=== PATIENT | female | born 1955 ===

== ENCOUNTER 2024-12-03 06:00 | Day surgery (SDC) | payer OTHER ==
[2024-11-26 10:06] LABS: URINE APPEARANCE Clear; URINE BILIRRUBIN Negative (NEGATIVE); URINE BLOOD Negative; URINE COLOR Yellow; URINE KETONE Negative (NEGATIVE); URINE LEUKOCYTE Negative; URINE NITRATE Negative; URINE PROTEIN Negative (NEGATIVE); URINE UROBILINOGEN 0.2 E.U./dl
[2024-11-26 10:07] LABS: BASO % 0.7 % (0.1-1.2); EOS # 0.15 (0.04-0.54); EOS % 1.5 % (0.7-7.0); LYMPH # 1.85 (1.18-3.74); LYMPH % 19.1 % (19.3-53.1); MEAN PLATELET VOLUME 9.10 fl (9.4-12.4); MONO # 0.64 (0.24-0.82); MONO % 6.6 % (4.7-12.5); NEUT # 6.96 (1.56-6.13); NEUT % 71.8 % (34.0-71.1); RED CELL DISTRIBUTION WIDTH 13.2 % (11.6-14.4)
[2024-11-26 10:10] LABS: URINE BACTERIA 37.1 uL (0.0-1933); URINE EPITHELIAL CELLS 2.2 uL (0.0-38.8)
[2024-11-26 10:14] LABS: URINE CAST 0.00 uL (0.0-1.40); URINE GLUCOSE >=1000 MG/DL (NEGATIVE); URINE RBC 1.9 uL (0.0-20.8); URINE WBC 1.5 uL (0.0-23.2)
[2024-11-26 10:32] LABS: INR 1.0
[2024-11-26 10:37] VITALS: BP 134/75
[2024-11-26 10:47] LABS: BUN CREA RATIO 21.0 (7.0-25.0); CREATININE SERUM 1.05 mg/dL (0.55-1.02); GFR 51.81; GLUCOSE FASTING 140.0 mg/dL (65-100); OSMOLALITY SERUM 289.0 MOSM/KG (275-295)
[~2024-12-03] VITALS: Ht 167.6 cm; Wt 84.4 kg
[~2024-12-03 06:00] MED LIST: ATACAND HCT 321 EAC1 PO; BRILINTA60 MG PO; GLIMEPIRIDE4 MG; HORIZANT300 MG PO; NORVASC5 MG PO; REPATHA SU140 MG/1 M SUBCUTANEO; ROSUVASTATIN CAL5 MG PO; SYNTHROID75 MCG PO; XIGDUO XR 5 MG1 EACH PO; ZETIA10 MG PO
[2024-12-03] MEDS ORDERED: ENOXAPARIN SODIUM 40 MG/0.4 ML SYRINGE SUBCUTANEO ONE (07:31)
[2024-12-03] MEDS ORDERED: METRONIDAZOLE/SODIUM CHLORIDE 500 MG/100 ML PIGGYBACK IV ONE (07:32)
[2024-12-03] MEDS ORDERED: CEFTRIAXONE SODIUM 2,000 MG VIAL ONE (07:32)
[2024-12-03] MEDS ORDERED: PERCOCET 5-3251 EACH PO (11:18)
[2024-12-03] MEDS ORDERED: POLY119PG PO (11:19)
[2024-12-03] MEDS ORDERED: NEURONTIN300 MG PO (11:19)
[2024-12-03] MEDS ORDERED: MORPHINE SULFATE 4 MG/ML VIAL IV ONE ×2 (11:30→12:30)
== END 2024-12-03 13:40 | disposition home or self-care (01) ==
LOC: CIR.AMB 06:00
PROVIDERS: ATTEND Surgery
DX: K43.0 Incisional hernia with obstruction, without gangrene (principal)
CPT/HCPCS: 49596; C1781